=== PATIENT | female | born 1980 | race African-American/Black ===

== ENCOUNTER 2020-12-23 19:32 | Emergency (ER) | payer BC, MEDICAID ==
[~2020-12-23] VITALS: Ht 162.6 cm; Wt 71.8 kg
[2020-12-23 19:40] VITALS: TEMP 98.8
[2020-12-23 21:28] VITALS: BP 107/68; PULSE 65
== END 2020-12-23 21:28 | disposition home or self-care (01) ==
LOC: COL.ER 19:32
DX: Z20.3 Contact with and (suspected) exposure to rabies (principal); Z23 Encounter for immunization